=== PATIENT | female | born 1940 | race Caucasian/White ===

== ENCOUNTER → 2018-11-28 | Outpatient (REF) | payer MEDICARE ==
[2018-11-28 10:54] LABS: ALBUMIN 4.7 g/dL (3.2-5.0); ALKALINE PHOSPHATASE 49 u/l (38-126); ANION GAP 15 (6-22 (CALC)); BILIRUBIN, TOTAL 0.8 mg/dL (0.0-1.4); BUN 15 mg/dL (8-23); BUN/CREATININE RATIO 16 (12-20 (CALC)); CALCULATED LDLCHOLESTEROL 165 mg/dL (62-129 (CALC)); CARBON DIOXIDE 25 mmol/l (22-30); CHLORIDE 103 mmol/l (95-108); CHOLESTEROL HDL RATIO 5.9 (<4.4 (CALC)); GFR 54 ML/MIN (>=60 (CALC)); GFR FOR AFR.AMER. > 60 ML/MIN (>=60 (CALC)); HDL CHOLESTEROL 51 mg/dL (>=40); POTASSIUM 4.2 mmol/l (3.5-5.1); SGOT/AST 26 u/l (9-36); SODIUM 139 mmol/l (137-146); TOTAL CHOLESTEROL 302 mg/dl (0-199); TOTAL PROTEIN 7.7 g/dL (6.3-8.2); VLDL CHOLESTROL 86 mg/dl (0-48 (CALC))
[2018-11-28 10:55] LABS: TRIGLYCERIDES REFLEX TO dLDL 430 mg/dl (30-149)
[2018-11-28 11:01] LABS: HEMATOCRIT 40.4 % (37.0-47.0); HEMOGLOBIN 13.5 g/dl (12.0-16.0); IMMATURE GRANULOCYTES 0.5 % (0.0-5.0); MEAN CELL VOLUME 90.2 fL CALC (80.0-100.0); MEAN CORPUSCULAR HGB 30.1 pG CALC (26.0-32.0); MEAN CORPUSCULAR HGB CONC 33.4 g/L CALC (32.0-36.0); NEUT# 1.5 thou/uL (2.00-7.15); RED BLOOD COUNT 4.48 mill/uL (4.20-5.60); RED CELL DISTRI WIDTH 12.4 % (11.5-15.5)
[2018-11-28 11:22] LABS: TSH, 3RD GENERATION 2.64 uIU/mL (0.47 - 4.68)
== END | disposition home or self-care (01) ==
LOC: LAB 09:32
PROVIDERS: ATTEND Internal Medicine Geriatric Medicine
DX: I10 Essential (primary) hypertension (principal); E78.2 Mixed hyperlipidemia; E03.9 Hypothyroidism, unspecified; E11.8 Type 2 diabetes mellitus with unspecified complications

== ENCOUNTER 2019-05-28 20:51 | Emergency (ER) | payer OTHER, MEDICARE ==
[~2019-05-28] VITALS: Ht 167.6 cm; Wt 75.9 kg
[2019-05-28 21:46] LABS: HEMATOCRIT 35.9 % (37.0-47.0); HEMOGLOBIN 12.2 g/dl (12.0-16.0); IMMATURE GRANULOCYTES 1.9 % (0.0-5.0); MEAN CELL VOLUME 89.1 fL CALC (80.0-100.0); MEAN CORPUSCULAR HGB 30.3 pG CALC (26.0-32.0); RED BLOOD COUNT 4.03 mill/uL (4.20-5.60); RED CELL DISTRI WIDTH 11.9 % (11.5-15.5)
[2019-05-28 21:51] LABS: ALBUMIN 4.6 g/dL (3.2-5.0); ALKALINE PHOSPHATASE 50 u/l (38-126); ANION GAP 17 (6-22 (CALC)); BILIRUBIN, TOTAL 0.8 mg/dL (0.0-1.4); BUN 20 mg/dL (8-23); BUN/CREATININE RATIO 22 (12-20 (CALC)); CARBON DIOXIDE 23 mmol/l (22-30); CHLORIDE 103 mmol/l (95-108); CREATININE 0.9 mg/dL (0.5-1.0); GFR > 60 ML/MIN (>=60 (CALC)); GFR FOR AFR.AMER. > 60 ML/MIN (>=60 (CALC)); POTASSIUM 4.3 mmol/l (3.5-5.1); SODIUM 139 mmol/l (137-146); TOTAL PROTEIN 7.3 g/dL (6.3-8.2)
[2019-05-28 21:53] LABS: SGOT/AST 54 u/l (9-36)
[2019-05-28 22:16] LABS: URINE BILIRUBIN - DIPSTICK NEGATIVE (NEGATIVE); URINE BLOOD DIPSTICK NEGATIVE (NEGATIVE); URINE COLOR YELLOW; URINE GLUCOSE - DIPSTICK NEGATIVE (NEGATIVE); URINE KETONE NEGATIVE (NEGATIVE); URINE LEUK ESTERASE TRACE (Negative); URINE NITRITE - DIPSTICK NEGATIVE (Negative); URINE PH 5.5 (4.5-8.0); URINE PROTEIN - DIPSTICK NEGATIVE (NEG-TRACE); URINE UROBILINOGEN - DIPSTICK 0.2 E.U./dL (0.2)
[2019-05-28 22:17] LABS: URINE CLARITY CLEAR
[2019-05-29] MEDS ORDERED: LORTAB 5/3255 MG PO (00:18)
[2019-05-29] MEDS ORDERED: TORADOL PO (00:18)
[2019-05-29 00:45] VITALS: BP 132/77
[2019-05-29] MEDS ORDERED: LISINOPRIL2.5 MG PO (01:33)
[2019-05-29] MEDS ORDERED: METFORMIN500 M2 PO (01:33)
== END 2019-05-29 01:25 | disposition home or self-care (01) | DRG 185 ==
LOC: ED 20:51
PROVIDERS: Family Medicine
DX: S22.41XA Multiple fractures of ribs, right side, initial encounter for closed fracture (principal); S63.502A Unspecified sprain of left wrist, initial encounter; I10 Essential (primary) hypertension; V49.49XA Driver injured in collision with other motor vehicles in traffic accident, initial encounter

== ENCOUNTER 2019-06-17 21:41 | Emergency (ER) | payer MEDICARE ==
[~2019-06-17] VITALS: Ht 167.6 cm; Wt 73.0 kg
[~2019-06-17 21:41] MED LIST: LISINOPRIL2.5 MG PO; LORTAB 5/3255 MG PO; METFORMIN500 M2 PO; TORADOL PO
[2019-06-17] MEDS ORDERED: PRAVASTATIN SOD20 MG PO (22:03)
[2019-06-17 22:32] LABS: HEMATOCRIT 37.6 % (37.0-47.0); HEMOGLOBIN 13.1 g/dl (12.0-16.0); IMMATURE GRANULOCYTES 0.8 % (0.0-5.0); MEAN CELL VOLUME 89.1 fL CALC (80.0-100.0); MEAN CORPUSCULAR HGB CONC 34.8 g/L CALC (32.0-36.0); NEUT# 4.07 thou/uL (2.00-7.15); RED BLOOD COUNT 4.22 mill/uL (4.20-5.60); RED CELL DISTRI WIDTH 12.4 % (11.5-15.5)
[2019-06-17 22:39] LABS: URINE BILIRUBIN - DIPSTICK NEGATIVE (NEGATIVE); URINE COLOR YELLOW; URINE GLUCOSE - DIPSTICK 500 mg/dL (NEGATIVE); URINE KETONE NEGATIVE (NEGATIVE); URINE NITRITE - DIPSTICK NEGATIVE (Negative); URINE PROTEIN - DIPSTICK NEGATIVE (NEG-TRACE); URINE UROBILINOGEN - DIPSTICK 0.2 E.U./dL (0.2)
[2019-06-17 22:57] LABS: URINE LEUK ESTERASE SMALL (NEGATIVE)
[2019-06-17 22:58] LABS: URINE BLOOD DIPSTICK NEGATIVE (NEGATIVE)
[2019-06-17 22:59] LABS: URINE BACTERIA FEW hpf; URINE EPITHELIAL CELLS FEW EPI/hpf (0-FEW)
[2019-06-17 23:09] LABS: ALBUMIN 4.6 g/dL (3.2-5.0); AMYLASE 80 u/l (30-110); ANION GAP 16 (6-22 (CALC)); BILIRUBIN, TOTAL 0.7 mg/dL (0.0-1.4); BUN 19 mg/dL (8-23); BUN/CREATININE RATIO 21 (12-20 (CALC)); CARBON DIOXIDE 20 mmol/l (22-30); CHLORIDE 106 mmol/l (95-108); CREATININE 0.9 mg/dL (0.5-1.0); GFR > 60 ML/MIN (>=60 (CALC)); GFR FOR AFR.AMER. > 60 ML/MIN (>=60 (CALC)); LIPASE 253 u/l (23-300); POTASSIUM 4.4 mmol/l (3.5-5.1); SGOT/AST 24 u/l (9-36); SODIUM 137 mmol/l (137-146); TOTAL PROTEIN 7.4 g/dL (6.3-8.2)
[2019-06-17 23:12] LABS: ALKALINE PHOSPHATASE 83 u/l (38-126)
[2019-06-18] MEDS ORDERED: METRONIDAZOL500 MG PO (01:21)
[2019-06-18] MEDS ORDERED: CIPROFLOXACN500 MG PO (01:21)
[2019-06-18 01:25] VITALS: BP 114/50
== END 2019-06-18 01:25 | disposition home or self-care (01) ==
LOC: ED 21:41
PROVIDERS: Emergency Medicine
DX: K57.32 Diverticulitis of large intestine without perforation or abscess without bleeding (principal); N39.0 Urinary tract infection, site not specified; E11.9 Type 2 diabetes mellitus without complications; I10 Essential (primary) hypertension; Z79.84 Long term (current) use of oral hypoglycemic drugs
CPT/HCPCS: Q9967; S0164

== ENCOUNTER 2019-08-31 | Observation (INO) | payer MEDICARE ==
[~2019-08-31] MED LIST changes: +CIPROFLOXACN500 MG PO; -METFORMIN500 M2 PO; +METFORMIN500 MG PO; +METRONIDAZOL500 MG PO; +PRAVASTATIN SOD20 MG PO
--- NOTE | 2019-08-31 13:30 | NUR ---
PT TO ROOM 8 W/STEADY GAIT.
--- NOTE | 2019-08-31 14:33 | NUR ---
PT REPOSITIONED TO HIGH FOWLERS FOR NEB TX.
[2019-08-31 14:54] LABS: HEMATOCRIT 41.1 % (37.0-47.0); HEMOGLOBIN 14.3 g/dl (12.0-16.0); IMMATURE GRANULOCYTES 4.6 % (0.0-5.0); MEAN CELL VOLUME 89.2 fL CALC (80.0-100.0); MEAN CORPUSCULAR HGB CONC 34.8 g/L CALC (32.0-36.0); NEUT# 3.35 thou/uL (2.00-7.15); RED BLOOD COUNT 4.61 mill/uL (4.20-5.60); RED CELL DISTRI WIDTH 12.1 % (11.5-15.5)
--- NOTE | 2019-08-31 15:00 | NUR ---
PT SITTING UP IN BED. IMPROVED AIRWAY, WHEEZING RESOLVED.
[2019-08-31 15:08] LABS: CREATININE 1.1 mg/dL (0.5-1.0); POTASSIUM 4.1 mmol/l (3.5-5.1)
--- NOTE | 2019-08-31 16:15 | NUR ---
PT ADVISED OF CONTINUED WAIT TIME POSSIBLE ADMISSION. PT VOICED UNDERSTANDING.
--- NOTE | 2019-08-31 17:20 | NUR ---
PT ASSISTED TO BR. RETURNED TO BED NO SOB OBSERVED. SATS 94% RA
--- NOTE | 2019-08-31 18:18 | NUR ---
REPORT CALLED TO AMANDA AWAD
--- NOTE | 2019-08-31 18:35 | NUR ---
PT TO MEDSURG VIA STRETCHER IV SITE HEALTHY. IV ABT INFUSING. RESP EVEN UNLABORED. NO COUGHING AT THIS TIME. ABLE TO STAND AND TRANSFER SELF WITHOUT ASSIST STRETCHER TO STRETCHER.
--- NOTE | 2019-08-31 19:00 | NUR ---
REPORT RECEIVED FROM AMANDA AWAD. PT RESTING IN BED. RESPIRATIONS EVEN AND UNLABORED ON RA. NO S/S OF DISTRESS AT THIS TIME. SAFETY PRECAUTIONS IN PLACE. WILL CONTINUE TO MONITOR.
--- NOTE | 2019-08-31 19:07 | NUR ---
PT ARRIVED TO FLOOR AT 1840 VIA STRETCHER ACCOMPANIED BY AMANDA CURIEL. PT TRANSFERED TO BED BY SELF, STEADY GAIT. DENIES WEAKNESS. PT. ALERT AND ORIENTED. GRANDSON AT BEDSIDE. PT ORIENTED TO ROOM AND EQUIPMENT. CALL LIGHT REVIEWED AND IN REACH. 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 [employer] SUPPLIED. ZITHROMAX IV INFUSING THROUGH # 20 LAC, W/O DIFFICULTY, NO REDNESS OR SWELLING NOTED.
[2019-08-31 19:18] VITALS: BP 149/66
--- NOTE | 2019-08-31 19:55 | NUR ---
PT RESTING IN BED. ALERT AND ORIENTED. RESPIRATIONS EVEN AND UNLABORED ON RA. PEDAL PULSES STRONG. SKIN IS INTACT. PT REPORTS HAVING PAIN IN HER LOWER BACK RATING 5/10. MD TO BE NOTIFIED. PT ORIENTED TO ROOM AND CALL [facility]. PT ENCOURAGED TO USE CALL [facility] IF ANY NEEDS SHOULD ARISE. TELE IN PLACE. WILL CONTINUE TO MONITOR.
[2019-09-01] VITALS (9 sets, daily range): BP systolic 113–168; BP diastolic 62–77
--- NOTE | 2019-09-01 04:03 | NUR ---
PT RESTING IN BED. TELE IN PLACE. RESPIRATIONS EVEN AND UNLABORED. NO S/S OF DISTRESS AT THIS TIME. WILL CONTINUE TO MONITOR.
[2019-09-01 06:36] LABS: HEMATOCRIT 38.3 % (37.0-47.0); HEMOGLOBIN 13.2 g/dl (12.0-16.0); IMMATURE GRANULOCYTES 1.6 % (0.0-5.0); MEAN CELL VOLUME 89.3 fL CALC (80.0-100.0); MEAN CORPUSCULAR HGB 30.8 pG CALC (26.0-32.0); MEAN CORPUSCULAR HGB CONC 34.5 g/L CALC (32.0-36.0); NEUT# 7.7 thou/uL (2.00-7.15); RED BLOOD COUNT 4.29 mill/uL (4.20-5.60); RED CELL DISTRI WIDTH 11.9 % (11.5-15.5)
[2019-09-01 06:45] LABS: ANION GAP 19 (6-22 (CALC)); BUN 25 mg/dL (8-23); BUN/CREATININE RATIO 28 (12-20 (CALC)); CARBON DIOXIDE 19 mmol/l (22-30); CHLORIDE 99 mmol/l (95-108); CREATININE 0.9 mg/dL (0.5-1.0); GFR > 60 ML/MIN (>=60 (CALC)); GFR FOR AFR.AMER. > 60 ML/MIN (>=60 (CALC)); MAGNESIUM 1.5 mg/dL (1.6-2.3); POTASSIUM 4.3 mmol/l (3.5-5.1); SODIUM 133 mmol/l (137-146)
--- NOTE | 2019-09-01 07:25 | NUR ---
PT RESTING IN BED, EASILY AROUSED TO VERBAL STIMULI,PT ALERT AND ORIENTED X3, DISCUSSED POC, NOVOLOG AND FLU VACCINE, CONSENT OBTAINED, INFLUENZA EDUCATION PROVIDED. ASSESSMENT COMPLETED. CALL LIGHT IN REACH,CONTINUE TO MONITOR.
--- NOTE | 2019-09-01 09:27 | NUR ---
PT RESTING IN BED WATCHING TV. DISCUSSED FLU VACCINE, PT GIVEN FLU VACCINE TO R DELTOID, PT TOLERATED WELL. CALL LIGHT IN REACH,CONTINUE TO MONITOR.
--- NOTE | 2019-09-01 11:50 | NUR ---
PT EATING LUNCH, DISCUSSED 10U OF SLIDING SCALE NOVOLOG PLUS 5 UNITS ADDITIONAL NOVOLOG. PT VERBALIZED UNDERSTANDING. VOICES NO NEEDS OR COMPLAINTS AT THIS TIME. CASE MANAGEMENT AT BEDSIDE. CALL LIGHT IN REACH,CONTINUE TO MONITOR.
[2019-09-01] MEDS ORDERED: METFORMIN500 M2 PO (12:20)
--- NOTE | 2019-09-01 16:04 | NUR ---
DISCUSSED IV MAGNESIUM, PT AGREES. INITIATED IV MAGNESIUM. CALL LIGHT IN REACH,CONTINUE TO MONITOR.
--- NOTE | 2019-09-01 19:45 | NUR ---
PT ASSESSMENT COMPLETED AND POC DISCUSSED. PT ASSISTED TO RESTROOM AND BACK TO BED. NO S/O DISTRESS NOTED AT THIS TIME. PT LOCX3, BUT SEEMS SLIGHTLY FORGETFUL ASKING THE SAME QUESTIONS SEVERAL TIMES. CALL LIGHT AT BEDSIDE AND PT ENCOURAGED TO CALL. SAFETY MEASURES DISCUSSED W/PT.
[2019-09-02] VITALS: BP 130/79
--- NOTE | 2019-09-02 00:15 | NUR ---
AIDE IN W/PT ASSISTED TO RESTROOM AND OBTAINING V/S. PT APPEARED SLIGHTLY CONFUSED IN SEARCH OF RESTROOM. PT WAS SLEEPING SOUNDLY WHEN AIDE ENTERED AND ANSWERED APPROPRIATELY ONCE SHE SEEMED GOOD AND AWAKE. WILL CONTINUE TO MONITOR.
[2019-09-02 00:59] LABS: URINE BILIRUBIN - DIPSTICK NEGATIVE (NEGATIVE); URINE BLOOD DIPSTICK NEGATIVE (NEGATIVE); URINE COLOR YELLOW; URINE GLUCOSE - DIPSTICK >=1000 mg/dL (NEGATIVE); URINE KETONE NEGATIVE (NEGATIVE); URINE LEUK ESTERASE NEGATIVE (NEGATIVE); URINE NITRITE - DIPSTICK NEGATIVE (Negative); URINE PH 5.5 (4.5-8.0); URINE PROTEIN - DIPSTICK NEGATIVE (NEG-TRACE); URINE UROBILINOGEN - DIPSTICK 0.2 E.U./dL (0.2)
[2019-09-02 04:00] VITALS: BP 148/74
[2019-09-02 05:53] LABS: HEMATOCRIT 34.3 % (37.0-47.0); IMMATURE GRANULOCYTES 1.7 % (0.0-5.0); MEAN CORPUSCULAR HGB 31.5 pG CALC (26.0-32.0); NEUT# 10.8 thou/uL (2.00-7.15); RED BLOOD COUNT 3.81 mill/uL (4.20-5.60)
--- NOTE | 2019-09-02 06:16 | NUR ---
PT MEDICATED ORDERS PROVIDE. REQUESTING COFFEE/PROVIDED. DENIES ANY OTHER NEEDS.
[2019-09-02 06:20] LABS: ANION GAP 15 (6-22 (CALC)); BUN 24 mg/dL (8-23); BUN/CREATININE RATIO 30 (12-20 (CALC)); CARBON DIOXIDE 20 mmol/l (22-30); CHLORIDE 102 mmol/l (95-108); CREATININE 0.8 mg/dL (0.5-1.0); GFR > 60 ML/MIN (>=60 (CALC)); GFR FOR AFR.AMER. > 60 ML/MIN (>=60 (CALC)); POTASSIUM 4.4 mmol/l (3.5-5.1); SODIUM 133 mmol/l (137-146)
[2019-09-02 07:27] VITALS: BP 142/70
--- NOTE | 2019-09-02 07:27 | NUR ---
PT SITTING IN BED WATCHING TV. A&O X3. NO DISTRESS NOTED. PT C/O A HEADACHE. MEDICATION GIVEN. WILL REASSESS. NO OTHER CONCERNS FROM THE PT AT THIS TIME. ASSESSMENT COMPLETED AT THIS TIME. DISCUSSED POC. CALL LIGHT IN REACH CONTINUE TO MONITOR.
[2019-09-02 11:11] VITALS: BP 145/73
--- NOTE | 2019-09-02 11:17 | NUR ---
NOTIFIED OF ACCUCHECK 438, ORDERS TO GIVE 5U SQ IX NOW.
--- NOTE | 2019-09-02 11:29 | NUR ---
PT SITTING IN BED WATCHING TV. BLOOD SUGAR 438. PER LEE GIVE 5 EXTRA UNTIS. 15 UNITS ADMINISTERED. CONTINUE TO MONITOR.
[2019-09-02] MEDS ORDERED: AZITHROMYCIN500 MG PO (13:17)
[2019-09-02] MEDS ORDERED: KEFLEX500 M1 PO (13:17)
[2019-09-02] MEDS ORDERED: PREDNISONE50 MG PO (13:18)
--- NOTE | 2019-09-02 14:44 | NUR ---
DISCUSSED D/C INSTRUCTIONS WITH PT. PT VERBALIZED UNDERSTANDING.
--- NOTE | 2019-09-02 15:09 | NUR ---
Discharge instructions given. Patient verbalizes understanding of same. Discharged in stable condition via Ambulatory to Home with family. All belongings sent with pt.
[2019-12-28] MEDS ORDERED: MAGNESIUM400 MG PO (11:44)
[2019-12-28] MEDS ORDERED: TRULICITY1.5 MG/0.5 IJ (11:44)
[2019-12-28] MEDS ORDERED: LEVOTHROID125 MCG PO (11:51)
[2019-12-28] MEDS ORDERED: LIPITOR10 M1 PO (11:52)
[2019-12-28] MEDS ORDERED: FOLIC ACID800 MC1 PO (11:54)
[2019-12-28] MEDS ORDERED: MULTI VITAMIN1 TAB PO (11:55)
[2019-12-28] MEDS ORDERED: NORCO1 TA2 PO (12:23)
== END 2019-09-02 15:08 | disposition home or self-care (01) ==
PROVIDERS: Family Medicine; Nurse Practitioner Family; ADMIT Internal Medicine
DX: J44.1 Chronic obstructive pulmonary disease with (acute) exacerbation (principal); E11.9 Type 2 diabetes mellitus without complications; I10 Essential (primary) hypertension; E03.9 Hypothyroidism, unspecified; M19.90 Unspecified osteoarthritis, unspecified site; Z79.84 Long term (current) use of oral hypoglycemic drugs; Z87.891 Personal history of nicotine dependence; Z23 Encounter for immunization
CPT/HCPCS: G0378; J1650; J3475

== ENCOUNTER 2020-02-14 06:40 | Day surgery (SDC) | payer MEDICARE ==
[~2020-02-14 06:40] MED LIST changes: +AZITHROMYCIN500 MG PO; +FOLIC ACID800 MC1 PO; +KEFLEX500 M1 PO; +LEVOTHROID125 MCG PO; +LIPITOR10 M1 PO; +MAGNESIUM400 MG PO; +METFORMIN500 M2 PO; +MULTI VITAMIN1 TAB PO; +NORCO1 TA2 PO; +PREDNISONE50 MG PO; +TRULICITY1.5 MG/0.5 IJ
[2020-02-14 08:33] VITALS: BP 114/66
== END 2020-02-14 09:25 | disposition home or self-care (01) ==
LOC: ORM 06:40
PROVIDERS: ATTEND Anesthesiology Pain Medicine
DX: G57.02 Lesion of sciatic nerve, left lower limb (principal); M46.1 Sacroiliitis, not elsewhere classified
CPT/HCPCS: 20552; G0260; Q9967